=== PATIENT | female | born 1990 | race Caucasian/White ===

== ENCOUNTER 2018-03-29 17:25 | Outpatient (CLI) | payer OTHER | END 2018-03-29 19:25 | disposition home or self-care (01) | LOC: EDBD 17:25 → SLB 17:25 | PROVIDERS: ATTEND Obstetrics & Gynecology | DX: N94.89 Other specified conditions associated with female genital organs and menstrual cycle (principal) | CPT/HCPCS: 36415; 84702-TC ==

== ENCOUNTER 2018-05-14 12:17 | Outpatient (CLI) | payer OTHER ==
[2018-05-15 08:06] LABS: PROLACTIN 10.5 ng/mL (4.8-23.3)
== END 2018-05-14 19:39 | disposition home or self-care (01) ==
LOC: SLB 12:17
PROVIDERS: ATTEND Obstetrics & Gynecology
DX: E10.65 Type 1 diabetes mellitus with hyperglycemia (principal); E34.9 Endocrine disorder, unspecified
CPT/HCPCS: 36415; 82947-TC; 83036; 84146

== ENCOUNTER → 2018-06-04 | Outpatient (CLI) | payer OTHER | END | disposition home or self-care (01) | LOC: SLB 15:20 | PROVIDERS: ATTEND Obstetrics & Gynecology | DX: N92.3 Ovulation bleeding (principal) | CPT/HCPCS: 36415; 84144 ==

== ENCOUNTER 2018-07-02 06:37 | Day surgery (SDC) | payer OTHER ==
[~2018-07-02] VITALS: Ht 160 cm; Wt 87.5 kg
[2018-07-02 06:56] LABS: HCG,QUAL RESULT NEGATIVE (NEGATIVE)
[2018-07-02] MEDS ORDERED: GLYCOPYRROLATE 0.2 MG/ML VIAL IJ ONE (07:35)
[2018-07-02] MEDS ORDERED: EPINEPHrine 1 MG/ML AMP IM ONE (07:35)
[2018-07-02] MEDS ORDERED: OXYMETAZOLINE HCL 0.05% NASAL SPRAY NS ONE (07:35)
[2018-07-02] MEDS ORDERED: DEXAMETHASONE SOD PHOSPHATE 4 MG/ML VIAL IVP ONE (07:35)
[2018-07-02] MEDS ORDERED: MUPIROCIN NASAL 2% OINT. NS ONE (07:35)
[2018-07-02] MEDS ORDERED: ROCURONIUM BROMIDE 10 MG/ML (ZEMURON) IV ONE (07:35)
[2018-07-02] MEDS ORDERED: WATER FOR IRRIGATION,STERILE 1,000 ML IRRIG.SOLN IR ONE (07:35)
[2018-07-02] MEDS ORDERED: SEVOFLURANE 15 MIN GAS INH ONE (07:35)
[2018-07-02] MEDS ORDERED: LR 1,000 ML IV.SOLN IV ONE (07:35)
[2018-07-02] MEDS ORDERED: NS 1000 ML IV.SOLN IV ONE (07:35)
[2018-07-02] MEDS ORDERED: fentaNYL CITRATE 250 MCG/5 ML AMP IV ONE (07:35)
[2018-07-02] MEDS ORDERED: PHENYLEPHRINE HCL 10 MG/ML VIAL (NEOSYNEPHRINE) IV ONE (07:35)
[2018-07-02] MEDS ORDERED: PROPOFOL 200MG/ 20ML VIAL (DIPRIVAN) IV ONE (07:35)
[2018-07-02] MEDS ORDERED: LIDOCAINE/EPI 1% 1:100000 20 ML VIAL INJ ONE (07:35)
[2018-07-02] MEDS ORDERED: ONDANSETRON HCL 4 MG/2 ML VIAL IVP ONE (07:35)
[2018-07-02] MEDS ORDERED: MIDAZOLAM HCL 5 MG/5 ML VIAL IVP ONE (07:35)
[2018-07-02] MEDS ORDERED: LR 1,000 ML IV SCH (09:26)
[2018-07-02] MEDS ORDERED: METOCLOPRAMIDE HCL 10 MG/2 ML VIAL IVP PRN (09:30)
[2018-07-02] MEDS ORDERED: MORPHINE 4 MG/ML INJ. SYRINGE IVP PRN ×3 (09:30)
[2018-07-02] MEDS ORDERED: MORPHINE 4 MG/ML INJ. SYRINGE ONE (10:22)
[2018-07-02] MEDS ORDERED: HYDROmorphone 2 MG/ML VIAL IVP ONE (10:30)
[2018-07-02] MEDS ORDERED: HYDROmorphone 2 MG/ML VIAL ONE (10:40)
[2018-07-02] MEDS ORDERED: HYDROcodone/ACETAMIN 5-325 MG TAB (NORCO/ VICODIN) PO ONE (13:15)
[2018-07-02 13:16] VITALS: BP_SYST 121
[2018-07-02] MEDS ORDERED: HYDROcodone/ACETAMIN 5-325 MG TAB (NORCO/ VICODIN) ONE (13:25)
== END 2018-07-02 15:45 | disposition home or self-care (01) ==
LOC: SDS 06:37 → SMU 06:42 → SDS 15:45
PROVIDERS: ATTEND Otolaryngology
DX: J34.2 Deviated nasal septum (principal); J32.9 Chronic sinusitis, unspecified; J34.89 Other specified disorders of nose and nasal sinuses; E03.9 Hypothyroidism, unspecified; M06.9 Rheumatoid arthritis, unspecified; M79.7 Fibromyalgia; Z83.3 Family history of diabetes mellitus; Z79.899 Other long term (current) drug therapy; Z98.890 Other specified postprocedural states; Z68.31 Body mass index [BMI] 31.0-31.9, adult; E66.01 Morbid (severe) obesity due to excess calories; R00.0 Tachycardia, unspecified
CPT/HCPCS: 30140; 30520; 31255; 31256; 84703; 88304; 88305; 88311; J0171; J1100; J1170; J2250; J2270; J2370; J2405; J2704; J3010; J3490; J7030; J7120

== ENCOUNTER 2018-11-09 06:15 | Day surgery (SDC) | payer OTHER ==
[2018-11-03 09:37] LABS: BASOPHILS % (AUTO) 0.6 % (0.0-2.0); EOSINOPHILS % (AUTO) 0.5 % (0.0-4.0); HEMATOCRIT 35.3 % (36-48); LYMPHOCYTES # (AUTO) 4.2 K/uL (1.0-5.5); LYMPHOCYTES % (AUTO) 50.4 % (20.5-51.5); MEAN CORPUSCULAR HEMOGLOBIN 21 pg (27-31); MEAN CORPUSCULAR HGB CONC 31 % (32-36); MONOCYTES # (AUTO) 0.5 K/uL (0.0-1.0); MONOCYTES % (AUTO) 5.6 % (1.7-9.3); NEUTROPHILS # (AUTO) 3.5 K/uL (1.8-7.7); NEUTROPHILS % (AUTO) 42.9 % (40.0-70.0); PLATELET COUNT (AUTO) 430 K/uL (130-430); RED BLOOD CELL COUNT(AUTO) 5.34 MIL/uL (4.2-6.2); RED CELL DISTRIBUTION WIDTH 18.3 % (9.0-15.0); WHITE BLOOD COUNT (AUTO) 8.2 K/uL (4.8-10.8)
[2018-11-03 09:40] LABS: MEAN CORPUSCULAR VOLUME 66 fL (79.0-98.0)
[2018-11-03 09:47] LABS: BILIRUBIN,URINE NEGATIVE (NEGATIVE); BLOOD, URINE NEGATIVE (NEGATIVE); CLARITY/URINE CLEAR (CLEAR); COLOR,URINE YELLOW (YELLOW); GLUCOSE,URINE NEGATIVE (NEGATIVE); KETONES,URINE NEGATIVE (NEGATIVE); LEUKOCYTE ESTERASE ,URINE TRACE (NEGATIVE); NITRITE, URINE NEGATIVE (NEGATIVE); PH,URINE 5.5 (5.0-8.0); PROTEIN URINE NEGATIVE (NEGATIVE); UROBILINOGEN,URINE 0.2 (0.2-1.0)
[2018-11-03 10:15] LABS: BACTERIA,URINE MODERATE /HPF (None Seen); RBC,URINE 0-3 /HPF (0-3); WBC,URINE 0-3 /HPF (0-3)
[2018-11-03 10:16] LABS: HCG,QUAL RESULT NEGATIVE (NEGATIVE)
[~2018-11-09] VITALS: Ht 165.1 cm; Wt 90.7 kg
[2018-11-09] MEDS ORDERED: CEFAZOLIN SOD 1 GM in D5W 50 ML IV ONE (07:00)
[2018-11-09] MEDS ORDERED: fentaNYL CITRATE 250 MCG/5 ML AMP IV ONE (07:55)
[2018-11-09] MEDS ORDERED: LR 1,000 ML IV.SOLN IV ONE (07:55)
[2018-11-09] MEDS ORDERED: MIDAZOLAM HCL 5 MG/5 ML VIAL IVP ONE (07:55)
[2018-11-09] MEDS ORDERED: SEVOFLURANE 15 MIN GAS INH ONE (07:55)
[2018-11-09] MEDS ORDERED: ROCURONIUM BROMIDE 10 MG/ML (ZEMURON) IV ONE (07:55)
[2018-11-09] MEDS ORDERED: GLYCOPYRROLATE 0.2 MG/ML VIAL IJ ONE (07:55)
[2018-11-09] MEDS ORDERED: ONDANSETRON HCL 4 MG/2 ML VIAL IVP ONE (07:55)
[2018-11-09] MEDS ORDERED: PROPOFOL 200MG/ 20ML VIAL (DIPRIVAN) IV ONE (07:55)
[2018-11-09] MEDS ORDERED: KETOROLAC TROMETHAMINE 30 MG VIAL IVP ONE (07:55)
[2018-11-09] MEDS ORDERED: NEOSTIGMINE METHYLSULFATE 1 MG/ML, 10 ML VIAL IVP ONE (07:55)
[2018-11-09] MEDS ORDERED: NS 1000 ML IV.SOLN IV ONE (07:55)
[2018-11-09] MEDS ORDERED: NS IRRIG SOLN 1000 ML IR ONE (07:55)
[2018-11-09] MEDS ORDERED: LR 1,000 ML IV SCH (08:33)
[2018-11-09] MEDS ORDERED: METOCLOPRAMIDE HCL 10 MG/2 ML VIAL IVP PRN (08:45)
[2018-11-09] MEDS ORDERED: MORPHINE 4 MG/ML INJ. SYRINGE IVP PRN ×3 (08:45)
[2018-11-09] MEDS ORDERED: MORPHINE 4 MG/ML INJ. SYRINGE ONE (10:03)
[2018-11-09 10:32] VITALS: BP_SYST 107
[2018-11-09] MEDS ORDERED: HYDROcodone/ACETAMIN 5-325 MG TAB (NORCO/ VICODIN) ONE (10:37)
[2018-11-09] MEDS ORDERED: HYDROcodone/ACETAMIN 5-325 MG TAB (NORCO/ VICODIN) PO PRN ×2 (10:45)
[2018-11-09] MEDS ORDERED: IBUPROFEN 600 MG TABLET PO PRN (10:45)
[2018-11-09] MEDS ORDERED: ONDANSETRON HCL 4 MG/2 ML VIAL IVP PRN (10:45)
[2018-11-09] MEDS ORDERED: MORPHINE SULFATE 10 MG/ML VIAL IVP PRN (10:45)
== END 2018-11-09 12:40 | disposition home or self-care (01) ==
LOC: SDS 06:15 → SMU 06:16 → SDS 12:40
PROVIDERS: ATTEND Obstetrics & Gynecology
DX: N85.00 Endometrial hyperplasia, unspecified (principal); N73.6 Female pelvic peritoneal adhesions (postinfective); N93.9 Abnormal uterine and vaginal bleeding, unspecified; M79.7 Fibromyalgia; D64.9 Anemia, unspecified; M19.90 Unspecified osteoarthritis, unspecified site; E66.3 Overweight; G89.29 Other chronic pain
CPT/HCPCS: 36415 ×2; 58558; 58660; 81000; 84703 ×2; 85025; 86886; 86900; 86901; 88305; C1727; C1782; J0690; J1885; J2250; J2270; J2405; J2704; J2710; J3010; J3490; J7030; J7060; J7120

== ENCOUNTER 2019-01-26 11:41 | Emergency (ER) | payer OTHER ==
[~2019-01-26] VITALS: Ht 162.6 cm; Wt 90.7 kg
[2019-01-26 11:45] VITALS: BP_SYST 135
--- NOTE | 2019-01-26 11:45 | NUR ---
Patient triaged and placed in waiting room. VSS and patient appears in no acute distress at this time. Accompanied by SELF, awaiting available bed, and MD notified of need for MSE.
--- NOTE | 2019-01-26 12:14 | NUR ---
BROUGHT BACK TO BED #5 VIA WHEELCHAIR AND REPORT GIVEN TO GIANCARLO
--- NOTE | 2019-01-26 12:18 | NUR ---
Pt AAOx4 ambulated into ED c/o 02/10 R heel pain r/t arthritis flare up since this morning, vaginal spotting x 2 weeks, and 02/10 low back pain. Denies trauma. No other injuries/complaints per pt/noted. Will continue to monitor.
--- NOTE | 2019-01-26 12:25 | NUR ---
DUARTE Evans at bedside examining patient.
[2019-01-26] MEDS ORDERED: PREDNISONE 20 MG TABLET PO ONE (12:45)
[2019-01-26] MEDS ORDERED: KETOROLAC TROMETHAMINE 30 MG VIAL IM ONE (12:45)
[2019-01-26 13:01] LABS: EOSINOPHILS # (AUTO) 0.1 K/uL (0.0-0.4); LYMPHOCYTES # (AUTO) 4.3 K/uL (1.0-5.5); MONOCYTES # (AUTO) 0.4 K/uL (0.0-1.0)
[2019-01-26 13:09] LABS: BASOPHILS % (AUTO) 0.5 % (0.0-2.0); EOSINOPHILS % (AUTO) 1.5 % (0.0-4.0); HEMATOCRIT 37.4 % (36-48); HEMOGLOBIN 11.8 g/dL (12.0-16.0); MEAN CORPUSCULAR HEMOGLOBIN 22 pg (27-31); MEAN CORPUSCULAR HGB CONC 32 % (32-36); MEAN CORPUSCULAR VOLUME 71 fL (79.0-98.0); NEUTROPHILS # (AUTO) 2.6 K/uL (1.8-7.7); PLATELET COUNT (AUTO) 316 K/uL (130-430); RED CELL DISTRIBUTION WIDTH 19.9 % (9.0-15.0); WHITE BLOOD COUNT (AUTO) 7.5 K/uL (4.8-10.8)
--- NOTE | 2019-01-26 13:13 | NUR ---
Radiology at bedside for XR
[2019-01-26 13:19] LABS: CALCIUM 9.1 mg/dL (8.4-11.0); CREATININE 0.8 mg/dL (0.55-1.30)
[2019-01-26 13:31] LABS: ALBUMIN 4.2 g/dL (3.4-4.8); TOTAL BILIRUBIN 0.3 mg/dL (0.0-1.0)
--- NOTE | 2019-01-26 14:07 | NUR ---
Dr. Evans at bedside discussing results.
--- NOTE | 2019-01-26 14:07 | NUR ---
PT moved to bed 06
[2019-01-26 14:11] VITALS: BP_SYST 129
--- NOTE | 2019-01-26 14:11 | NUR ---
Patient given written and verbal discharge instructions and verbalizes understanding. ER MD Evans discussed with patient the results and treatment provided. Patient in stable condition. ID arm band removed. Rx of Naproxen given. Patient educated on pain management and to follow up with PMD. Pain Scale 0. Opportunity for questions provided and answered. Medication side effect fact sheet provided.
== END 2019-01-26 14:11 | disposition home or self-care (01) ==
LOC: SED 11:41
DX: M77.31 Calcaneal spur, right foot (principal); N93.9 Abnormal uterine and vaginal bleeding, unspecified
CPT/HCPCS: 36415; 73630; 80053; 84702; 85025; 96372; 99284; J1885; J7512

== ENCOUNTER 2019-04-19 11:06 | Emergency (ER) | payer OTHER ==
[~2019-04-19] VITALS: Ht 167.6 cm; Wt 88.0 kg
[2019-04-19 11:13] VITALS: BP_SYST 147
--- NOTE | 2019-04-19 11:24 | NUR ---
Patient to ER bed 3 to gown for evaluation. Side rails up.
--- NOTE | 2019-04-19 11:25 | NUR ---
Patient is awake, alert, and oriented x4. Patient reports she has had lower abdominal pain radiating down her right leg and lower back pain for 3-4 days. Patient is also complaining of nausea, but she denies vomiting and diarrhea. Patient states she is currently trying to have a child and is worried d/t history of ectopic .
--- NOTE | 2019-04-19 11:40 | NUR ---
ER Dr. Leach at bedside examining patient.
[2019-04-19] MEDS ORDERED: KETOROLAC TROMETHAMINE 60 MG/2 ML VIAL IM ONE (12:15)
[2019-04-19 12:22] LABS: HEMATOCRIT 38.2 % (36-48); HEMOGLOBIN 12.3 g/dL (12.0-16.0); MEAN CORPUSCULAR HEMOGLOBIN 24 pg (27-31); MEAN CORPUSCULAR HGB CONC 32 % (32-36); MEAN CORPUSCULAR VOLUME 75 fL (79.0-98.0); PLATELET COUNT (AUTO) 378 K/uL (130-430); RED BLOOD CELL COUNT(AUTO) 5.13 MIL/uL (4.2-6.2); RED CELL DISTRIBUTION WIDTH 17.3 % (9.0-15.0); WHITE BLOOD COUNT (AUTO) 5.8 K/uL (4.8-10.8)
[2019-04-19 12:27] LABS: CALCIUM 8.8 mg/dL (8.4-11.0); CREATININE 0.67 mg/dL (0.55-1.30); POTASSIUM 3.7 mmol/L (3.5-5.1)
[2019-04-19 12:33] LABS: ALBUMIN 4.2 g/dL (3.4-4.8); TOTAL BILIRUBIN 0.2 mg/dL (0.0-1.0)
[2019-04-19 12:47] LABS: ATYPICAL LYMPHOCYTES % 13 % (0-0); BAND % (MANUAL) 0 % (0-6); LYMPHOCYTES % (MANUAL) 59 % (20-46)
[2019-04-19 12:48] LABS: BASOPHILS % (MANUAL) 0 % (0-2); EOSINOPHILS % (MANUAL) 2 % (0-7); MONOCYTES % (MANUAL) 3 % (0-11)
--- NOTE | 2019-04-19 13:10 | NUR ---
Patient refused toradol. Dr. Leach made aware.
[2019-04-19 13:48] LABS: BILIRUBIN,URINE NEGATIVE (NEGATIVE); BLOOD, URINE NEGATIVE (NEGATIVE); CLARITY/URINE CLEAR (CLEAR); COLOR,URINE YELLOW (YELLOW); GLUCOSE,URINE NEGATIVE (NEGATIVE); KETONES,URINE NEGATIVE (NEGATIVE); LEUKOCYTE ESTERASE ,URINE NEGATIVE (NEGATIVE); NITRITE, URINE NEGATIVE (NEGATIVE); PH,URINE 7.5 (5.0-8.0); PROTEIN URINE NEGATIVE (NEGATIVE); UROBILINOGEN,URINE 0.2 (0.2-1.0)
--- NOTE | 2019-04-19 14:08 | NUR ---
Patient is now asking for pain medication. Dr. Leach made aware.
[2019-04-19] MEDS ORDERED: traMADol HCL HCL 50 MG TABLET (ULTRAM) PO ONE (14:15)
[2019-04-19 14:40] VITALS: BP_SYST 147
--- NOTE | 2019-04-19 14:41 | NUR ---
Patient given written and verbal discharge instructions and verbalizes understanding. ER MD discussed with patient the results and treatment provided. Patient in stable condition. ID arm band removed. Rx of miralax, tramadol given. Patient educated on pain management and to follow up with PMD. Pain Scale 0/10. Opportunity for questions provided and answered. Medication side effect fact sheet provided.
== END 2019-04-19 14:40 | disposition home or self-care (01) ==
LOC: SED 11:06
DX: K59.00 Constipation, unspecified (principal)
CPT/HCPCS: 36415; 74176; 80053; 81003; 81025; 83690; 84702; 85007; 85027; 99284; J1885

== ENCOUNTER 2019-07-04 11:42 | Outpatient (CLI) | payer OTHER | END 2019-07-04 21:02 | disposition home or self-care (01) | LOC: SLB 11:42 | PROVIDERS: ATTEND Obstetrics & Gynecology | DX: N92.3 Ovulation bleeding (principal); N94.89 Other specified conditions associated with female genital organs and menstrual cycle | CPT/HCPCS: 36415; 84144; 84702-TC ==

== ENCOUNTER 2019-11-10 10:55 | Outpatient (CLI) | payer OTHER ==
[2019-11-10 11:53] LABS: HEMATOCRIT 42.1 % (36-48); HEMOGLOBIN 13.5 g/dL (12.0-16.0); MEAN CORPUSCULAR HEMOGLOBIN 25 pg (27-31); MEAN CORPUSCULAR HGB CONC 32 % (32-36); MEAN CORPUSCULAR VOLUME 78 fL (79.0-98.0); PLATELET COUNT (AUTO) 287 K/uL (130-430); RED CELL DISTRIBUTION WIDTH 14.8 % (9.0-15.0); WHITE BLOOD COUNT (AUTO) 4.6 K/uL (4.8-10.8)
[2019-11-10 12:12] LABS: ATYPICAL LYMPHOCYTES % 5 % (0-0); BAND % (MANUAL) 1 % (0-6); BASOPHILS % (MANUAL) 0 % (0-2); EOSINOPHILS % (MANUAL) 1 % (0-7); LYMPHOCYTES % (MANUAL) 65 % (20-46); MONOCYTES % (MANUAL) 4 % (0-11)
[2019-11-10 12:30] LABS: ALBUMIN 4.2 g/dL (3.4-4.8); C-REACTIVE PROTEIN QUANT 0.3 mg/dL (0-0.5); CALCIUM 9.1 mg/dL (8.4-11.0); CREATININE 0.82 mg/dL (0.55-1.30); FREE T4 (FREE THYROXINE) 1.6 ng/dL (0.6-1.6); POTASSIUM 3.8 mmol/L (3.5-5.1); THYROID STIMULATING HORMONE 1.16 uIu/mL (0.34-4.82); TOTAL BILIRUBIN 0.2 mg/dL (0.0-1.0)
[2019-11-10 12:52] LABS: ERYTHROCYTE SEDIMENTATION RATE 6 MM/HR (0-20)
[2019-11-11 15:42] LABS: HEMOGLOBIN A1C 5.7 % (4.8-5.6)
== END 2019-11-10 21:07 | disposition home or self-care (01) ==
LOC: SLB 10:55
DX: M06.9 Rheumatoid arthritis, unspecified (principal); E06.9 Thyroiditis, unspecified; E03.9 Hypothyroidism, unspecified; D70.9 Neutropenia, unspecified; Z79.899 Other long term (current) drug therapy
CPT/HCPCS: 36415; 80053; 80061; 82306; 83036; 84439; 84443-TC; 85007; 85027; 85651-TC; 86140

== ENCOUNTER 2020-11-07 12:01 | Outpatient (CLI) | payer OTHER ==
[2020-11-07 12:51] LABS: BILIRUBIN,URINE NEGATIVE (NEGATIVE); CLARITY/URINE CLEAR (CLEAR); COLOR,URINE YELLOW (YELLOW); GLUCOSE,URINE NEGATIVE (NEGATIVE); KETONES,URINE TRACE (NEGATIVE); LEUKOCYTE ESTERASE ,URINE NEGATIVE (NEGATIVE); NITRITE, URINE NEGATIVE (NEGATIVE); PH,URINE 5.5 (5.0-8.0); PROTEIN URINE NEGATIVE (NEGATIVE); UROBILINOGEN,URINE 0.2 (0.2-1.0)
[2020-11-07 12:54] LABS: BLOOD, URINE TRACE (NEGATIVE)
[2020-11-07 13:01] LABS: BACTERIA,URINE RARE /HPF (None Seen); RBC,URINE 0-3 /HPF (0-3); WBC,URINE NONE SEEN /HPF (0-3)
[2020-11-07 13:10] LABS: HEMATOCRIT 37.9 % (36-48); HEMOGLOBIN 12.4 g/dL (12.0-16.0); MEAN CORPUSCULAR HEMOGLOBIN 25 pg (27-31); MEAN CORPUSCULAR HGB CONC 33 % (32-36); MEAN CORPUSCULAR VOLUME 76 fL (79.0-98.0); PLATELET COUNT (AUTO) 350 K/uL (130-430); RED BLOOD CELL COUNT(AUTO) 5.02 MIL/uL (4.2-6.2); WHITE BLOOD COUNT (AUTO) 5.5 K/uL (4.8-10.8)
[2020-11-07 13:16] LABS: ALBUMIN 3.9 g/dL (3.4-4.8); CALCIUM 9.2 mg/dL (8.4-11.0); CREATININE 0.77 mg/dL (0.55-1.30); POTASSIUM 3.9 mmol/L (3.5-5.1); THYROID STIMULATING HORMONE 0.5 uIu/mL (0.36-3.74); TOTAL BILIRUBIN 0.5 mg/dL (0.0-1.0)
[2020-11-07 13:47] LABS: ERYTHROCYTE SEDIMENTATION RATE 62 MM/HR (0-20)
[2020-11-07 14:15] LABS: ATYPICAL LYMPHOCYTES % 10 % (0-0); BASOPHILS % (MANUAL) 0 % (0-2); EOSINOPHILS % (MANUAL) 0 % (0-7); LYMPHOCYTES % (MANUAL) 54 % (20-46); MONOCYTES % (MANUAL) 7 % (0-11)
[2020-11-08 06:06] LABS: T3 UPTAKE 29 % (24-39)
[2020-11-08 08:06] LABS: RA LATEX TURBID 13.7 IU/mL (0.0-13.9)
[2020-11-08 10:07] LABS: ANTI NUCLEAR AB WITH REFLEX Positive (Negative)
[2020-11-08 11:51] LABS: HEMOGLOBIN A1C 5.7 % (4.8-5.6)
== END 2020-11-07 21:34 | disposition home or self-care (01) ==
LOC: SUS 12:01
PROVIDERS: ATTEND Family Medicine
DX: Z00.00 Encounter for general adult medical examination without abnormal findings (principal); Z13.1 Encounter for screening for diabetes mellitus; M06.9 Rheumatoid arthritis, unspecified; E04.9 Nontoxic goiter, unspecified; E03.9 Hypothyroidism, unspecified; D64.9 Anemia, unspecified; Z13.21 Encounter for screening for nutritional disorder
CPT/HCPCS: 36415; 76536-TC; 80053; 80061; 81000; 83036; 84443; 84479; 84703; 85007; 85027; 85651-TC; 86038; 86431

== ENCOUNTER 2021-08-22 11:38 | Outpatient (CLI) | payer OTHER ==
[2021-08-23 04:06] LABS: ESTRADIOL 61.1 pg/mL (.); FOLLICLE STIMULATION HORMONE 5.8 mIU/mL (.); LUETENIZING HORMONE 2.4 mIU/mL (.)
== END 2021-08-22 19:34 | disposition home or self-care (01) ==
LOC: SLB 11:38
PROVIDERS: ATTEND Specialist
DX: N92.6 Irregular menstruation, unspecified (principal)
CPT/HCPCS: 36415; 82670; 83001; 83002

== ENCOUNTER 2021-08-27 13:20 | Outpatient (CLI) | payer OTHER ==
[2021-08-28 08:06] LABS: ESTRADIOL 70.9 pg/mL (.); LUETENIZING HORMONE 4.4 mIU/mL (.); PROLACTIN 10.2 ng/mL (4.8-23.3)
[2021-08-28 12:04] LABS: HEMOGLOBIN A1C 5.8 % (4.8-5.6); INSULIN 72.4 uIU/mL (2.6-24.9)
== END 2021-08-27 20:10 | disposition home or self-care (01) ==
LOC: SLB 13:20
PROVIDERS: ATTEND Specialist
DX: N92.6 Irregular menstruation, unspecified (principal)
CPT/HCPCS: 36415; 82627; 82670; 83001; 83002; 83036; 83525; 84146; 84443

== ENCOUNTER 2021-08-28 08:27 | Outpatient (CLI) | payer OTHER ==
[2021-08-28 09:06] LABS: BASOPHILS # (AUTO) 0.1 K/uL (0.0-0.2); BASOPHILS % (AUTO) 1.4 % (0.0-2.0); EOSINOPHILS # (AUTO) 0.1 K/uL (0.0-0.4); HEMATOCRIT 39.1 % (36-48); HEMOGLOBIN 12.7 g/dL (12.0-16.0); LYMPHOCYTES % (AUTO) 53.3 % (20.5-51.5); MEAN CORPUSCULAR HEMOGLOBIN 24 pg (27-31); MEAN CORPUSCULAR HGB CONC 33 % (32-36); MEAN CORPUSCULAR VOLUME 74 fL (79.0-98.0); MONOCYTES # (AUTO) 0.4 K/uL (0.0-1.0); MONOCYTES % (AUTO) 6.5 % (1.7-9.3); NEUTROPHILS % (AUTO) 36.8 % (40.0-70.0); PLATELET COUNT (AUTO) 398 K/uL (130-430); RED CELL DISTRIBUTION WIDTH 15.4 % (9.0-15.0); WHITE BLOOD COUNT (AUTO) 5.5 K/uL (4.8-10.8)
[2021-08-28 09:42] LABS: ERYTHROCYTE SEDIMENTATION RATE 59 MM/HR (0-20)
[2021-08-28 11:04] LABS: THYROID STIMULATING HORMONE 0.08 uIu/mL (0.36-3.74); TOTAL BILIRUBIN 0.1 mg/dL (0.0-1.0)
[2021-08-28 11:26] LABS: CALCIUM 8.9 mg/dL (8.4-11.0); CREATININE 0.74 mg/dL (0.55-1.30)
[2021-08-28 14:13] LABS: C-REACTIVE PROTEIN QUANT 1.4 mg/dL (0-0.5)
== END 2021-08-28 19:55 | disposition home or self-care (01) ==
LOC: SLB 08:27
DX: E11.9 Type 2 diabetes mellitus without complications (principal); E06.9 Thyroiditis, unspecified; E53.9 Vitamin B deficiency, unspecified; M06.9 Rheumatoid arthritis, unspecified; M32.9 Systemic lupus erythematosus, unspecified; E83.42 Hypomagnesemia; E78.9 Disorder of lipoprotein metabolism, unspecified; Z79.899 Other long term (current) drug therapy
CPT/HCPCS: 36415; 80053; 80061; 82306; 82607; 83036; 84443; 85025; 85651-TC; 86038; 86140; 86200; 86431

== ENCOUNTER 2022-01-01 11:46 | Outpatient (CLI) | payer OTHER | END 2022-01-01 20:39 | disposition home or self-care (01) | LOC: SLB 11:46 | PROVIDERS: ATTEND Specialist | DX: O09.811 Supervision of pregnancy resulting from assisted reproductive technology, first trimester (principal); Z3A.00 Weeks of gestation of pregnancy not specified | CPT/HCPCS: 36415; 84144 ==

== ENCOUNTER 2022-01-14 13:42 | Outpatient (CLI) | payer OTHER ==
[2022-01-14 14:43] LABS: BASOPHILS % (AUTO) 0.6 % (0.0-2.0); EOSINOPHILS # (AUTO) 0.2 K/uL (0.0-0.4); EOSINOPHILS % (AUTO) 2.2 % (0.0-4.0); HEMATOCRIT 36.9 % (36-48); LYMPHOCYTES # (AUTO) 3.3 K/uL (1.0-5.5); LYMPHOCYTES % (AUTO) 42.2 % (20.5-51.5); MEAN CORPUSCULAR VOLUME 75 fL (79.0-98.0); MONOCYTES # (AUTO) 0.6 K/uL (0.0-1.0); MONOCYTES % (AUTO) 7.3 % (1.7-9.3); NEUTROPHILS # (AUTO) 3.7 K/uL (1.8-7.7); NEUTROPHILS % (AUTO) 47.7 % (40.0-70.0); PLATELET COUNT (AUTO) 324 K/uL (130-430); RED BLOOD CELL COUNT(AUTO) 4.92 MIL/uL (4.2-6.2); RED CELL DISTRIBUTION WIDTH 15.4 % (9.0-15.0); WHITE BLOOD COUNT (AUTO) 7.8 K/uL (4.8-10.8)
[2022-01-15 08:06] LABS: PROGESTERONE 49.5 ng/mL (.)
[2022-01-15 13:06] LABS: HEPATITIS B SURFACE AG Negative (Negative)
[2022-01-15 17:06] LABS: T4 (THYROXINE) 16.7 ug/dl
== END 2022-01-14 19:58 | disposition home or self-care (01) ==
LOC: SLB 13:42
PROVIDERS: ATTEND Specialist
DX: O99.281 Endocrine, nutritional and metabolic diseases complicating pregnancy, first trimester (principal); E03.4 Atrophy of thyroid (acquired); Z3A.09 9 weeks gestation of pregnancy; E16.1 Other hypoglycemia
CPT/HCPCS: 36415; 84144; 84436; 84443; 85025; 86592; 86886; 86900; 86901; 87340

== ENCOUNTER 2022-02-19 15:38 | Emergency (ER) | payer OTHER ==
[~2022-02-19] VITALS: Ht 165.1 cm; Wt 81.6 kg
[2022-02-19 15:38] VITALS: BP_SYST 135
--- NOTE | 2022-02-19 15:40 | NUR ---
Patient triaged and placed in waiting room. VSS and patient appears in no acute distress at this time. Accompanied by SELF, awaiting available bed, and MD notified of need for MSE.
--- NOTE | 2022-02-19 15:51 | NUR ---
PT STATES THAT SHE IS 14 WEEKS 3 DAYS , STATES LOWER PELVIC AND LOWER BACK PAIN ALL DAY TODAY. STATES DURING HER LAST SHE HAD TO HAVE A CERCLAGE DUE TO INCOMPETENT CERVIX. SHE IS SCHEDULED FOR A CERCLAGE ON THE . JUST WORRIED THAT SHE MIGHT BE DILATING LIKE LAST TIME
--- NOTE | 2022-02-19 15:55 | NUR ---
DR DARNELL OUT TO TRIAGE ROOM TO EVALUATE PT.
--- NOTE | 2022-02-19 16:01 | NUR ---
DR DARNELL EVALUATING PT IN TRIAGE ROOM.
[2022-02-19 17:12] LABS: BASOPHILS # (AUTO) 0.1 K/uL (0.0-0.2); BASOPHILS % (AUTO) 0.8 % (0.0-2.0); EOSINOPHILS % (AUTO) 0.6 % (0.0-4.0); HEMATOCRIT 36.9 % (36-48); HEMOGLOBIN 12.1 g/dL (12.0-16.0); LYMPHOCYTES # (AUTO) 2.5 K/uL (1.0-5.5); LYMPHOCYTES % (AUTO) 33.6 % (20.5-51.5); MEAN CORPUSCULAR HEMOGLOBIN 25 pg (27-31); MEAN CORPUSCULAR HGB CONC 33 % (32-36); MEAN CORPUSCULAR VOLUME 77 fL (79.0-98.0); MONOCYTES # (AUTO) 0.5 K/uL (0.0-1.0); MONOCYTES % (AUTO) 6.6 % (1.7-9.3); NEUTROPHILS # (AUTO) 4.3 K/uL (1.8-7.7); NEUTROPHILS % (AUTO) 58.4 % (40.0-70.0); PLATELET COUNT (AUTO) 304 K/uL (130-430); RED BLOOD CELL COUNT(AUTO) 4.82 MIL/uL (4.2-6.2); RED CELL DISTRIBUTION WIDTH 13.9 % (9.0-15.0); WHITE BLOOD COUNT (AUTO) 7.3 K/uL (4.8-10.8)
[2022-02-19 17:17] LABS: CALCIUM 8.9 mg/dL (8.4-11.0); CREATININE 0.68 mg/dL (0.55-1.30); POTASSIUM 3.5 mmol/L (3.5-5.1)
--- NOTE | 2022-02-19 17:39 | NUR ---
BROUGHT BACK TO BED #8 AND REPORT GIVEN TO JAMES
[2022-02-19 17:47] LABS: ALBUMIN 3.2 g/dL (3.4-4.8); TOTAL BILIRUBIN 0.1 mg/dL (0.0-1.0)
--- NOTE | 2022-02-19 17:49 | NUR ---
Ritchie of care received/ Pt A&Ox4,14 weeks with c/o lower back pain, VSS, respirations even and unlabored, pt denies N/V, report given to Jonas MORROW
[2022-02-19 18:11] LABS: BILIRUBIN,URINE NEGATIVE (NEGATIVE); BLOOD, URINE NEGATIVE (NEGATIVE); CLARITY/URINE CLEAR (CLEAR); COLOR,URINE YELLOW (YELLOW); GLUCOSE,URINE NEGATIVE (NEGATIVE); KETONES,URINE 1+ (NEGATIVE); LEUKOCYTE ESTERASE ,URINE NEGATIVE (NEGATIVE); NITRITE, URINE NEGATIVE (NEGATIVE); PROTEIN URINE NEGATIVE (NEGATIVE); UROBILINOGEN,URINE 0.2 (0.2-1.0)
[2022-02-19 19:05] VITALS: BP_SYST 101
--- NOTE | 2022-02-19 19:06 | NUR ---
Patient given written and verbal discharge instructions and verbalizes understanding. ER MD DARNELL discussed with patient the results and treatment provided. Patient in stable condition. ID arm band removed. Patient educated on pain management and to follow up with PMD. Pain Scale 0/10. Opportunity for questions provided and answered. Medication side effect fact sheet provided.
== END 2022-02-19 19:06 | disposition home or self-care (01) ==
LOC: SED 15:38
DX: O26.892 Other specified pregnancy related conditions, second trimester (principal); Z3A.14 14 weeks gestation of pregnancy; Z79.899 Other long term (current) drug therapy
CPT/HCPCS: 36415; 76801; 80053; 81003; 81025; 84702; 85025; 99284

== ENCOUNTER 2022-02-25 06:25 | Day surgery (SDC) | payer OTHER ==
[2022-02-20 14:45] LABS: FREE T4 (FREE THYROXINE) 1.2 ng/dL (0.6-1.6); THYROID STIMULATING HORMONE 6.77 uIu/mL (0.34-4.82)
[2022-02-24 10:52] LABS: HCG,QUAL RESULT POSITIVE (NEGATIVE)
[2022-02-24 11:03] LABS: BASOPHILS % (AUTO) 0.4 % (0.0-2.0); EOSINOPHILS % (AUTO) 0.7 % (0.0-4.0); HEMATOCRIT 34.9 % (36-48); HEMOGLOBIN 11.7 g/dL (12.0-16.0); LYMPHOCYTES # (AUTO) 2.3 K/uL (1.0-5.5); LYMPHOCYTES % (AUTO) 33.3 % (20.5-51.5); MEAN CORPUSCULAR HEMOGLOBIN 25 pg (27-31); MEAN CORPUSCULAR HGB CONC 34 % (32-36); MEAN CORPUSCULAR VOLUME 76 fL (79.0-98.0); MONOCYTES # (AUTO) 0.4 K/uL (0.0-1.0); MONOCYTES % (AUTO) 5.4 % (1.7-9.3); NEUTROPHILS # (AUTO) 4.2 K/uL (1.8-7.7); NEUTROPHILS % (AUTO) 60.2 % (40.0-70.0); PLATELET COUNT (AUTO) 293 K/uL (130-430); RED BLOOD CELL COUNT(AUTO) 4.62 MIL/uL (4.2-6.2); RED CELL DISTRIBUTION WIDTH 13.6 % (9.0-15.0); WHITE BLOOD COUNT (AUTO) 6.9 K/uL (4.8-10.8)
[~2022-02-25] VITALS: Ht 165.1 cm; Wt 81.6 kg
[2022-02-25 07:21] LABS: BILIRUBIN,URINE NEGATIVE (NEGATIVE); BLOOD, URINE NEGATIVE (NEGATIVE); CLARITY/URINE CLEAR (CLEAR); COLOR,URINE YELLOW (YELLOW); GLUCOSE,URINE NEGATIVE (NEGATIVE); KETONES,URINE NEGATIVE (NEGATIVE); LEUKOCYTE ESTERASE ,URINE NEGATIVE (NEGATIVE); NITRITE, URINE NEGATIVE (NEGATIVE); PH,URINE 5.5 (5.0-8.0); PROTEIN URINE NEGATIVE (NEGATIVE); UROBILINOGEN,URINE 0.2 (0.2-1.0)
[2022-02-25] MEDS ORDERED: CEFAZOLIN 2 GM IVPB PREMIX 50 ML IV ONE (07:56)
[2022-02-25] MEDS ORDERED: fentaNYL CITRATE/PF 100 MCG/2 ML AMP IVP ONE (07:56)
[2022-02-25] MEDS ORDERED: ePHEDrine sulfate 50 MG/ML VIAL IVP ONE (07:56)
[2022-02-25] MEDS ORDERED: LR 1,000 ML IV.SOLN IV ONE (07:56)
[2022-02-25] MEDS ORDERED: MIDAZOLAM HCL 5 MG/5 ML VIAL IVP ONE (07:56)
[2022-02-25] MEDS ORDERED: ONDANSETRON HCL 4 MG/2 ML VIAL IVP ONE (07:56)
[2022-02-25] MEDS ORDERED: NS IRRIG SOLN 1000 ML IR ONE (07:56)
[2022-02-25] MEDS ORDERED: TERBUTALINE SULFATE 1 MG/ML VIAL SUBCUT PRN (08:45)
[2022-02-25] MEDS ORDERED: HYDROmorphone 1 MG/ML INJ. CARTRIDGE IVP PRN (08:45)
[2022-02-25] MEDS ORDERED: METOCLOPRAMIDE HCL 10 MG/2 ML VIAL IVP PRN (08:45)
[2022-02-25] MEDS ORDERED: MORPHINE SULFATE 10 MG/ML VIAL IM PRN (08:45)
[2022-02-25] MEDS ORDERED: ONDANSETRON HCL 4 MG/2 ML VIAL IVP PRN (08:45)
[2022-02-25] MEDS ORDERED: MEPERIDINE HCL/PF 25 MG/ML DISP.SYRIN IVP PRN (08:45)
[2022-02-25 08:47] VITALS: BP_SYST 110
[2022-02-25] MEDS ORDERED: MORPHINE 4 MG INJ. 4 MG/ML VIAL IVP ONE (12:30)
[2022-02-25] MEDS ORDERED: MORPHINE SULFATE 10 MG/ML VIAL ONE (13:18)
== END 2022-02-25 19:36 | disposition home or self-care (01) ==
LOC: SDS 06:25 → SMU 06:26 → SPU 12:56 → SDS 19:36
PROVIDERS: ATTEND Specialist
DX: O34.32 Maternal care for cervical incompetence, second trimester (principal); O99.282 Endocrine, nutritional and metabolic diseases complicating pregnancy, second trimester; E03.9 Hypothyroidism, unspecified; Z3A.16 16 weeks gestation of pregnancy; Z20.822 Contact with and (suspected) exposure to COVID-19
CPT/HCPCS: 84439; 84443; 36415 ×2; 84480; 84703; 85025; 86886; 86900; 86901; 59320; 82962; 87070 ×2; 81003; U0003; J0690; J2250; J2405; J3010; J2270; J7120; J3105; 87075-TC

== ENCOUNTER 2022-04-12 20:50 | Observation (INO) | payer OTHER ==
[~2022-04-12] VITALS: Ht 165.1 cm; Wt 84.8 kg
[2022-04-12 23:09] LABS: BILIRUBIN,URINE NEGATIVE (NEGATIVE); BLOOD, URINE NEGATIVE (NEGATIVE); CLARITY/URINE CLEAR (CLEAR); COLOR,URINE YELLOW (YELLOW); GLUCOSE,URINE NEGATIVE (NEGATIVE); KETONES,URINE NEGATIVE (NEGATIVE); LEUKOCYTE ESTERASE ,URINE NEGATIVE (NEGATIVE); NITRITE, URINE NEGATIVE (NEGATIVE); PROTEIN URINE NEGATIVE (NEGATIVE); UROBILINOGEN,URINE 0.2 (0.2-1.0)
== END 2022-04-12 21:29 | disposition home or self-care (01) ==
LOC: SPU 20:50
PROVIDERS: ADMIT Specialist; ATTEND Specialist
DX: O26.892 Other specified pregnancy related conditions, second trimester (principal); R10.30 Lower abdominal pain, unspecified; Z3A.22 22 weeks gestation of pregnancy
CPT/HCPCS: 87086; 81003; 81002; G0379; G0378

== ENCOUNTER 2022-04-23 07:46 | Outpatient (CLI) | payer OTHER ==
[2022-04-23 08:40] LABS: BASOPHILS % (AUTO) 0.4 % (0.0-2.0); EOSINOPHILS % (AUTO) 0.6 % (0.0-4.0); HEMATOCRIT 35.6 % (36-48); HEMOGLOBIN 11.7 g/dL (12.0-16.0); LYMPHOCYTES # (AUTO) 2.6 K/uL (1.0-5.5); LYMPHOCYTES % (AUTO) 30.3 % (20.5-51.5); MEAN CORPUSCULAR HEMOGLOBIN 25 pg (27-31); MEAN CORPUSCULAR HGB CONC 33 % (32-36); MEAN CORPUSCULAR VOLUME 77 fL (79.0-98.0); MONOCYTES # (AUTO) 0.6 K/uL (0.0-1.0); MONOCYTES % (AUTO) 6.6 % (1.7-9.3); NEUTROPHILS # (AUTO) 5.3 K/uL (1.8-7.7); NEUTROPHILS % (AUTO) 62.1 % (40.0-70.0); PLATELET COUNT (AUTO) 272 K/uL (130-430); RED BLOOD CELL COUNT(AUTO) 4.63 MIL/uL (4.2-6.2); WHITE BLOOD COUNT (AUTO) 8.6 K/uL (4.8-10.8)
[2022-04-23 09:01] LABS: BILIRUBIN,URINE NEGATIVE (NEGATIVE); BLOOD, URINE NEGATIVE (NEGATIVE); CLARITY/URINE CLEAR (CLEAR); COLOR,URINE YELLOW (YELLOW); GLUCOSE,URINE NEGATIVE (NEGATIVE); KETONES,URINE NEGATIVE (NEGATIVE); LEUKOCYTE ESTERASE ,URINE NEGATIVE (NEGATIVE); NITRITE, URINE NEGATIVE (NEGATIVE); PROTEIN URINE NEGATIVE (NEGATIVE); UROBILINOGEN,URINE 0.2 (0.2-1.0)
[2022-04-23 09:03] LABS: ALBUMIN 3.1 g/dL (3.4-4.8); C-REACTIVE PROTEIN QUANT 2.5 mg/dL (0-0.5); CALCIUM 8.7 mg/dL (8.4-11.0); CREATININE 0.59 mg/dL (0.55-1.30); TOTAL BILIRUBIN 0.2 mg/dL (0.0-1.0)
[2022-04-23 09:54] LABS: ERYTHROCYTE SEDIMENTATION RATE 58 MM/HR (0-20)
[2022-04-24 07:06] LABS: COMPLEMENT C4, SERUM 43 mg/dL (12-38)
[2022-04-24 09:06] LABS: ANTI-DNA(DS) AB, QN 1 IU/mL (0-9); ANTI-NUCLEAR AB DIRECT Positive (Negative); SMITH ABS <0.2 AI (0.0-0.9)
[2022-04-25 08:14] LABS: RA LATEX TURBID 19.2 IU/mL (<14.0)
[2022-04-25 08:15] LABS: THYROID PEROXIDASE (TPO) AB 154 IU/mL (0-34)
[2022-04-25 16:06] LABS: PTT-LA 29.7 sec (0.0-51.9); dRVVT 35.7 sec (0.0-47.0)
[2022-04-27 08:06] LABS: ANTI-MITOCHONDRIAL AB <20.0 Units (0.0-20.0); ANTI-SMOOTH MUSCLE AB 5 Units (0-19)
[2022-04-29 08:06] LABS: ANTI-PARIETAL CELL AB 18.1 Units (0.0-20.0)
[2022-04-29 19:06] LABS: CCP IgG AB <1 units (0-19)
[2022-04-30 07:50] LABS: ANTI NUCLEAR AB WITH REFLEX POSITIVE (NEGATIVE)
== END 2022-04-23 18:26 | disposition home or self-care (01) ==
LOC: SLB 07:46
DX: M06.9 Rheumatoid arthritis, unspecified (principal); R80.9 Proteinuria, unspecified; M32.9 Systemic lupus erythematosus, unspecified; Z79.899 Other long term (current) drug therapy
CPT/HCPCS: 36415; 80053; 80061; 81003; 85025; 85613; 85651-TC; 85670; 85705; 85732; 86038; 86140; 86146; 86147; 86200; 86431

== ENCOUNTER 2022-05-29 07:53 | Outpatient (CLI) | payer OTHER ==
[2022-05-29 08:21] LABS: BASOPHILS % (AUTO) 0.3 % (0.0-2.0); EOSINOPHILS % (AUTO) 0.5 % (0.0-4.0); HEMATOCRIT 34.5 % (36-48); HEMOGLOBIN 11.3 g/dL (12.0-16.0); LYMPHOCYTES # (AUTO) 2.5 K/uL (1.0-5.5); LYMPHOCYTES % (AUTO) 32.2 % (20.5-51.5); MEAN CORPUSCULAR HEMOGLOBIN 25 pg (27-31); MEAN CORPUSCULAR HGB CONC 33 % (32-36); MEAN CORPUSCULAR VOLUME 76 fL (79.0-98.0); MONOCYTES # (AUTO) 0.5 K/uL (0.0-1.0); MONOCYTES % (AUTO) 5.9 % (1.7-9.3); NEUTROPHILS # (AUTO) 4.7 K/uL (1.8-7.7); NEUTROPHILS % (AUTO) 61.1 % (40.0-70.0); PLATELET COUNT (AUTO) 286 K/uL (130-430); RED BLOOD CELL COUNT(AUTO) 4.56 MIL/uL (4.2-6.2); RED CELL DISTRIBUTION WIDTH 14.2 % (9.0-15.0); WHITE BLOOD COUNT (AUTO) 7.8 K/uL (4.8-10.8)
[2022-05-29 08:46] LABS: ALBUMIN 2.8 g/dL (3.4-4.8); CREATININE 0.45 mg/dL (0.55-1.30); TOTAL BILIRUBIN 0.2 mg/dL (0.0-1.0)
[2022-05-30 09:06] LABS: HEMOGLOBIN A1C 5.6 % (4.8-5.6)
== END 2022-05-29 21:21 | disposition home or self-care (01) ==
LOC: SLB 07:53
PROVIDERS: ATTEND Specialist
DX: Z33.1 Pregnant state, incidental (principal)
CPT/HCPCS: 36415; 80053; 83036; 85025; 86592

== ENCOUNTER 2022-06-02 07:41 | Outpatient (CLI) | payer OTHER ==
[2022-06-02 08:38] LABS: CALCIUM 9.2 mg/dL (8.4-11.0); CREATININE 0.44 mg/dL (0.55-1.30); THYROID STIMULATING HORMONE 10.48 uIu/mL (0.34-4.82)
== END 2022-06-02 18:39 | disposition home or self-care (01) ==
LOC: SLB 07:41
DX: E11.9 Type 2 diabetes mellitus without complications (principal); E03.9 Hypothyroidism, unspecified
CPT/HCPCS: 36415; 80048; 83036; 84443

== ENCOUNTER 2022-06-30 09:29 | Outpatient (CLI) | payer OTHER | END 2022-06-30 19:52 | disposition home or self-care (01) | LOC: SLB 09:29 | PROVIDERS: ATTEND Internal Medicine Endocrinology, Diabetes & Metabolism | DX: E03.9 Hypothyroidism, unspecified (principal) | CPT/HCPCS: 36415; 84443 ==

== ENCOUNTER 2022-07-10 10:45 | Observation (INO) | payer OTHER ==
[~2022-07-10] VITALS: Ht 165.1 cm; Wt 89.8 kg
== END 2022-07-10 11:55 | disposition home or self-care (01) ==
LOC: SPU 10:45
PROVIDERS: ADMIT Specialist; ATTEND Specialist
DX: Z34.83 Encounter for supervision of other normal pregnancy, third trimester (principal); Z3A.34 34 weeks gestation of pregnancy
CPT/HCPCS: 59025; 81002; G0378; G0379

== ENCOUNTER 2022-07-15 09:08 | Observation (INO) | payer OTHER | END 2022-07-15 13:12 | disposition home or self-care (01) | LOC: SPU 09:08 | PROVIDERS: ADMIT Specialist; ATTEND Specialist | DX: Z34.83 Encounter for supervision of other normal pregnancy, third trimester (principal); Z3A.37 37 weeks gestation of pregnancy | CPT/HCPCS: 81002; G0378 ==

== ENCOUNTER 2022-08-04 10:19 | Inpatient (IN) | payer OTHER ==
[~2022-08-04] VITALS: Ht 162.6 cm; Wt 90.7 kg
[2022-08-04] MEDS ORDERED: LR 1,000 ML IV ONE (10:30)
[2022-08-04] MEDS ORDERED: CEFAZOLIN 2 GM IVPB PREMIX 50 ML IV ONE (10:30)
[2022-08-04 11:01] LABS: BASOPHILS % (AUTO) 0.4 % (0.0-2.0); EOSINOPHILS % (AUTO) 0.4 % (0.0-4.0); HEMATOCRIT 32.4 % (36-48); HEMOGLOBIN 10.5 g/dL (12.0-16.0); LYMPHOCYTES # (AUTO) 2.5 K/uL (1.0-5.5); LYMPHOCYTES % (AUTO) 37.7 % (20.5-51.5); MEAN CORPUSCULAR HEMOGLOBIN 23 pg (27-31); MEAN CORPUSCULAR HGB CONC 33 % (32-36); MEAN CORPUSCULAR VOLUME 71 fL (79.0-98.0); MONOCYTES # (AUTO) 0.5 K/uL (0.0-1.0); MONOCYTES % (AUTO) 7.4 % (1.7-9.3); NEUTROPHILS # (AUTO) 3.6 K/uL (1.8-7.7); NEUTROPHILS % (AUTO) 54.1 % (40.0-70.0); PLATELET COUNT (AUTO) 256 K/uL (130-430); RED BLOOD CELL COUNT(AUTO) 4.55 MIL/uL (4.2-6.2); RED CELL DISTRIBUTION WIDTH 15.1 % (9.0-15.0); WHITE BLOOD COUNT (AUTO) 6.7 K/uL (4.8-10.8)
[2022-08-04 11:12] LABS: BILIRUBIN,URINE NEGATIVE (NEGATIVE); BLOOD, URINE NEGATIVE (NEGATIVE); COLOR,URINE YELLOW (YELLOW); GLUCOSE,URINE NEGATIVE (NEGATIVE); KETONES,URINE NEGATIVE (NEGATIVE); LEUKOCYTE ESTERASE ,URINE 1+ (NEGATIVE); NITRITE, URINE NEGATIVE (NEGATIVE); PROTEIN URINE 1+ (NEGATIVE); UROBILINOGEN,URINE 0.2 (0.2-1.0)
[2022-08-04 11:15] LABS: CLARITY/URINE SLIGHTLY HAZY (CLEAR)
[2022-08-04 11:23] VITALS: BP_SYST 128
[2022-08-04 11:32] LABS: RBC,URINE 0-3 /HPF (0-3)
[2022-08-04 11:33] LABS: BACTERIA,URINE MODERATE /HPF (None Seen)
[2022-08-04 11:45] LABS: MUCUS,URINE 1+ /LPF (None Seen)
[2022-08-04] MEDS ORDERED: LR 1,000 ML IV.SOLN IV ONE (14:45)
[2022-08-04] MEDS ORDERED: BUPIVACAINE /PF 0.75% 10 ML VIAL INJ ONE (14:45)
[2022-08-04] MEDS ORDERED: MORPHINE SULFATE 10 MG/ML VIAL ONE (14:45)
[2022-08-04] MEDS ORDERED: NS IRRIG SOLN 1000 ML IR ONE (14:45)
[2022-08-04] MEDS ORDERED: PHENYLEPHRINE HCL 10 MG/ML VIAL (NEOSYNEPHRINE) ONE (14:45)
[2022-08-04] MEDS ORDERED: ePHEDrine sulfate 50 MG/ML VIAL ONE (14:45)
[2022-08-04] MEDS ORDERED: WATER FOR IRRIGATION,STERILE 1,000 ML IRRIG.SOLN IR ONE (14:45)
[2022-08-04] MEDS ORDERED: fentaNYL CITRATE/PF 100 MCG/2 ML AMP ONE (14:45)
[2022-08-04] MEDS ORDERED: OXYTOCIN 10 UNIT/ML VIAL ONE (14:45)
[2022-08-04] MEDS ORDERED: LANOLIN 7 GM OINT. TP PRN (15:45)
[2022-08-04] MEDS ORDERED: DIPHTH,PERTUSS(ACELL),TET VAC 0.5 ML VIAL (Tdap) I.M. PRN (15:45)
[2022-08-04] MEDS ORDERED: OXYCODONE/ACETAMINOPHEN *10*mg/325 mg TABLET PO PRN (15:45)
[2022-08-04] MEDS ORDERED: RHO(D) IMMUNE GLOBULIN/MALTOSE 1500 UNITS/1.3 ML (WINHRO) IM PRN (15:45)
[2022-08-04] MEDS ORDERED: ANUSOL 1 EA SUPP.RECT (PREPARATION H) RC PRN (15:45)
[2022-08-04] MEDS ORDERED: LR 1,000 ML IV SCH (15:45)
[2022-08-04] MEDS ORDERED: MEASLES,MUMPS&RUBELLA VACC/PF 12500 UNIT/0.5 ML VIAL SUBQ PRN (15:45)
[2022-08-04] MEDS ORDERED: BISACODYL 10 MG/SUPPOSITORY RC PRN (15:45)
[2022-08-04] MEDS ORDERED: HYDROcodone/ACETAMIN 5-325 MG TAB (NORCO/ VICODIN) PO PRN (15:45)
[2022-08-04] MEDS ORDERED: TEMAZEPAM 15 MG CAPSULE PO PRN (15:45)
[2022-08-04] MEDS ORDERED: NALOXONE HCL 0.4 MG/ML AMP (NARCAN) IVP PRN ×2 (15:45→16:00)
[2022-08-04 15:49] VITALS: BP_SYST 121
[2022-08-04] MEDS ORDERED: DIPHENHYDRAMINE INJ 50 MG/ML VIAL IM PRN (16:00)
[2022-08-04] MEDS ORDERED: ONDANSETRON HCL 4 MG/2 ML VIAL IVP PRN (16:00)
[2022-08-04] MEDS ORDERED: KETOROLAC TROMETHAMINE 60 MG/2 ML VIAL IM PRN (16:00)
[2022-08-04] MEDS: DOCUSATE SODIUM 100 MG CAPSULE PO SCH (20:20)
[2022-08-04] MEDS: SENNOSIDES/DOCUSATE SODIUM 1 TAB TABLET(SENOKOT-S) PO SCH (20:20)
[2022-08-04] MEDS: OXYTOCIN/0.9 % SODIUM CHLORIDE 1,000 ML IV SCH (21:45)
[2022-08-04] MEDS: SIMETHICONE 80 MG TAB.CHEW PO SCH (23:50)
[2022-08-04] MEDS: CEFAZOLIN 1 GM IVPB PREMIX 50 ML IV SCH (23:51)
[2022-08-04] MEDS: KETOROLAC TROMETHAMINE 30 MG VIAL IVP SCH (23:51)
[2022-08-05] MEDS: SIMETHICONE 80 MG TAB.CHEW PO SCH ×5 (03:00→21:01)
[2022-08-05] MEDS: CEFAZOLIN 1 GM IVPB PREMIX 50 ML IV SCH ×2 (06:22→12:29)
[2022-08-05] MEDS: OXYTOCIN/0.9 % SODIUM CHLORIDE 1,000 ML IV SCH (06:22)
[2022-08-05] MEDS: KETOROLAC TROMETHAMINE 30 MG VIAL IVP SCH ×3 (06:32→18:17)
[2022-08-05 07:41] LABS: BASOPHILS % (AUTO) 0.3 % (0.0-2.0); EOSINOPHILS % (AUTO) 0.5 % (0.0-4.0); HEMATOCRIT 27.8 % (36-48); HEMOGLOBIN 9.1 g/dL (12.0-16.0); LYMPHOCYTES # (AUTO) 2.3 K/uL (1.0-5.5); LYMPHOCYTES % (AUTO) 33.5 % (20.5-51.5); MEAN CORPUSCULAR HEMOGLOBIN 23 pg (27-31); MEAN CORPUSCULAR HGB CONC 33 % (32-36); MEAN CORPUSCULAR VOLUME 72 fL (79.0-98.0); MONOCYTES # (AUTO) 0.4 K/uL (0.0-1.0); MONOCYTES % (AUTO) 6.3 % (1.7-9.3); NEUTROPHILS % (AUTO) 59.4 % (40.0-70.0); PLATELET COUNT (AUTO) 167 K/uL (130-430); RED BLOOD CELL COUNT(AUTO) 3.89 MIL/uL (4.2-6.2); RED CELL DISTRIBUTION WIDTH 15.1 % (9.0-15.0); WHITE BLOOD COUNT (AUTO) 6.8 K/uL (4.8-10.8)
[2022-08-05] MEDS: DOCUSATE SODIUM 100 MG CAPSULE PO SCH ×2 (09:51→21:01)
[2022-08-05] MEDS: SENNOSIDES/DOCUSATE SODIUM 1 TAB TABLET(SENOKOT-S) PO SCH (21:01)
[2022-08-06] MEDS: IBUPROFEN 600 MG TABLET PO SCH ×4 (00:03→18:00)
[2022-08-06] MEDS: SIMETHICONE 80 MG TAB.CHEW PO SCH ×5 (00:03→22:24)
[2022-08-06] MEDS ORDERED: NALOXONE HCL 0.4 MG/ML AMP (NARCAN) IVP PRN (07:30)
[2022-08-06] MEDS ORDERED: HYDROcodone/ACETAMIN 10-325 MG TAB PO PRN (07:30)
[2022-08-06] MEDS: DOCUSATE SODIUM 100 MG CAPSULE PO SCH ×2 (09:42→20:45)
[2022-08-06] MEDS: HYDROmorphone 2 MG/ML VIAL IVP PRN ×2 (12:43→22:24)
[2022-08-06] MEDS: SENNOSIDES/DOCUSATE SODIUM 1 TAB TABLET(SENOKOT-S) PO SCH (20:45)
[2022-08-07] MEDS: IBUPROFEN 600 MG TABLET PO SCH ×4 (00:35→17:54)
[2022-08-07] MEDS: SIMETHICONE 80 MG TAB.CHEW PO SCH ×2 (02:09→06:22)
[2022-08-07] MEDS: DOCUSATE SODIUM 100 MG CAPSULE PO SCH (09:49)
[2022-08-07] MEDS: OXYCODONE/ACETAMINOPHEN 5-325 TABLET PO PRN ×2 (09:49→15:56)
== END 2022-08-07 19:15 | disposition home or self-care (01) | DRG 788 ==
LOC: SPU 10:19
PROVIDERS: ADMIT Specialist; ATTEND Specialist
PROC: 10D00Z1 Extraction of Products of Conception, Low, Open Approach (ICD-10-PCS; principal; 2022-08-04 14:48)
DX: O34.211 Maternal care for low transverse scar from previous cesarean delivery (principal); O24.429 Gestational diabetes mellitus in childbirth, unspecified control; Z3A.38 38 weeks gestation of pregnancy; Z37.0 Single live birth; Z20.822 Contact with and (suspected) exposure to COVID-19
CPT/HCPCS: 36415; 81000; 82947; 85025; 86592; 86762; 86886; 86900; 86901; 94760; J0690; J1170; J1200; J1885; J2270; J2370; J2590; J3010; J3490; J7120

== ENCOUNTER 2022-09-11 09:04 | Outpatient (CLI) | payer OTHER ==
[2022-09-11 10:17] LABS: ALBUMIN 3.7 g/dL (3.4-4.8); CALCIUM 9.1 mg/dL (8.4-11.0); CREATININE 0.73 mg/dL (0.55-1.30); FREE T4 (FREE THYROXINE) 1.3 ng/dL (0.6-1.6); THYROID STIMULATING HORMONE 0.8 uIu/mL (0.34-4.82); TOTAL BILIRUBIN 0.4 mg/dL (0.0-1.0)
== END 2022-09-11 20:52 | disposition home or self-care (01) ==
LOC: SLB 09:04
PROVIDERS: ATTEND Internal Medicine Endocrinology, Diabetes & Metabolism
DX: E11.9 Type 2 diabetes mellitus without complications (principal); E03.9 Hypothyroidism, unspecified
CPT/HCPCS: 36415; 80053; 82306; 83037; 84439; 84443

== ENCOUNTER 2023-02-25 14:40 | Outpatient (CLI) | payer OTHER | END 2023-02-25 17:13 | disposition home or self-care (01) | LOC: SLB 14:40 | PROVIDERS: ATTEND Specialist | DX: N91.2 Amenorrhea, unspecified (principal) | CPT/HCPCS: 36415; 84702 ==

== ENCOUNTER 2023-06-09 15:27 | Emergency (ER) | payer OTHER ==
[~2023-06-09] VITALS: Ht 165.1 cm; Wt 90.7 kg
[2023-06-09 15:41] VITALS: BP_SYST 140; PULSE 101; RESP 18; TEMP 98; O2SAT 97
[2023-06-09 17:16] LABS: COVID19 ANTIGEN SOFIA FIA NEGATIVE (NEGATIVE)
[2023-06-09 17:31] LABS: INFLUENZA TYPE A Negative (NEGATIVE); INFLUENZA TYPE B NEGATIVE (NEGATIVE)
[2023-06-09] MEDS ORDERED: ALBMDI INH (18:13)
[2023-06-09] MEDS ORDERED: PRED20TA PO (18:17)
[2023-06-09] MEDS ORDERED: BENZ100C92 PO (18:17)
[2023-06-09] MEDS ORDERED: PHEDM120 PO (18:17)
[2023-06-09] MEDS ORDERED: GUAI400T93 PO (18:17)
== END 2023-06-09 18:24 | disposition home or self-care (01) ==
LOC: SED 15:27
DX: J06.9 Acute upper respiratory infection, unspecified (principal); R05.9 Cough, unspecified; R50.9 Fever, unspecified; M79.10 Myalgia, unspecified site; Z79.899 Other long term (current) drug therapy; Z20.822 Contact with and (suspected) exposure to COVID-19
CPT/HCPCS: 36415; 71046; 99284

== ENCOUNTER 2023-07-15 12:15 | Outpatient (CLI) | payer OTHER ==
[~2023-07-15 12:15] MED LIST: ALBMDI INH; BENZ100C92 PO; GUAI400T93 PO; PHEDM120 PO; PRED20TA PO
== END 2023-07-15 19:47 | disposition home or self-care (01) ==
LOC: SLB 12:15
PROVIDERS: ATTEND Specialist
DX: N92.6 Irregular menstruation, unspecified (principal)
CPT/HCPCS: 36415; 84144; 84702

== ENCOUNTER 2023-07-29 06:30 | Outpatient (CLI) | payer OTHER ==
[2023-07-29 09:22] LABS: BASOPHILS % (AUTO) 0.8 % (0.0-2.0); EOSINOPHILS # (AUTO) 0.1 K/uL (0.0-0.4); EOSINOPHILS % (AUTO) 1.7 % (0.0-4.0); HEMATOCRIT 38.2 % (36-48); HEMOGLOBIN 12.5 g/dL (12.0-16.0); LYMPHOCYTES # (AUTO) 3.3 K/uL (1.0-5.5); LYMPHOCYTES % (AUTO) 54.5 % (20.5-51.5); MEAN CORPUSCULAR HEMOGLOBIN 24 pg (27-31); MEAN CORPUSCULAR HGB CONC 33 % (32-36); MEAN CORPUSCULAR VOLUME 72 fL (79.0-98.0); MONOCYTES # (AUTO) 0.4 K/uL (0.0-1.0); MONOCYTES % (AUTO) 5.8 % (1.7-9.3); NEUTROPHILS # (AUTO) 2.3 K/uL (1.8-7.7); NEUTROPHILS % (AUTO) 37.2 % (40.0-70.0); PLATELET COUNT (AUTO) 449 K/uL (130-430); RED BLOOD CELL COUNT(AUTO) 5.32 MIL/uL (4.2-6.2); RED CELL DISTRIBUTION WIDTH 15.5 % (9.0-15.0); WHITE BLOOD COUNT (AUTO) 6.1 K/uL (4.8-10.8)
[2023-07-29 09:23] LABS: BILIRUBIN,URINE NEGATIVE (NEGATIVE); BLOOD, URINE 3+ (NEGATIVE); CLARITY/URINE CLEAR (CLEAR); COLOR,URINE YELLOW (YELLOW); GLUCOSE,URINE NEGATIVE (NEGATIVE); KETONES,URINE NEGATIVE (NEGATIVE); LEUKOCYTE ESTERASE ,URINE NEGATIVE (NEGATIVE); NITRITE, URINE NEGATIVE (NEGATIVE); PH,URINE 5.5 (5.0-8.0); PROTEIN URINE NEGATIVE (NEGATIVE); UROBILINOGEN,URINE 0.2 (0.2-1.0)
[2023-07-29 09:49] LABS: BACTERIA,URINE FEW /HPF (None Seen); HYALINE CASTS, URINE 0-10 /LPF (None Seen); RBC,URINE 20-50 /HPF (0-3); WBC,URINE 0-3 /HPF (0-3)
[2023-07-29 09:54] LABS: CALCIUM 9.2 mg/dL (8.4-11.0); CREATININE 0.84 mg/dL (0.55-1.30); FREE T4 (FREE THYROXINE) 1.7 ng/dL (0.6-1.6); POTASSIUM 4.2 mmol/L (3.5-5.1); THYROID STIMULATING HORMONE 6.12 uIu/mL (0.34-4.82); TOTAL BILIRUBIN 0.3 mg/dL (0.0-1.0); TOTAL PROTEIN, SERUM 8.6 g/dL (6.4-8.3)
[2023-07-30 12:06] LABS: MICROALBUMIN URINE RANDOM 21.1 ug/mL (Not Estab.)
== END 2023-07-29 18:03 | disposition home or self-care (01) ==
LOC: SLB 06:30
PROVIDERS: ATTEND Internal Medicine Endocrinology, Diabetes & Metabolism
DX: E11.9 Type 2 diabetes mellitus without complications (principal); E03.9 Hypothyroidism, unspecified; E78.2 Mixed hyperlipidemia; E55.9 Vitamin D deficiency, unspecified; N39.0 Urinary tract infection, site not specified; I10 Essential (primary) hypertension
CPT/HCPCS: 36415; 80053; 80061; 81000; 81001; 81015; 82043; 82570; 83037; 84439; 84443; 85025

== ENCOUNTER 2023-08-06 07:57 | Outpatient (CLI) | payer OTHER ==
[2023-08-06 08:58] LABS: BASOPHILS % (AUTO) 0.4 % (0.0-2.0); EOSINOPHILS % (AUTO) 0.9 % (0.0-4.0); HEMATOCRIT 35.8 % (36-48); HEMOGLOBIN 11.6 g/dL (12.0-16.0); LYMPHOCYTES % (AUTO) 51.8 % (20.5-51.5); MEAN CORPUSCULAR HEMOGLOBIN 24 pg (27-31); MEAN CORPUSCULAR HGB CONC 33 % (32-36); MEAN CORPUSCULAR VOLUME 73 fL (79.0-98.0); MONOCYTES # (AUTO) 0.3 K/uL (0.0-1.0); MONOCYTES % (AUTO) 5.7 % (1.7-9.3); NEUTROPHILS # (AUTO) 2.4 K/uL (1.8-7.7); NEUTROPHILS % (AUTO) 41.2 % (40.0-70.0); PLATELET COUNT (AUTO) 339 K/uL (130-430); RED BLOOD CELL COUNT(AUTO) 4.93 MIL/uL (4.2-6.2); RED CELL DISTRIBUTION WIDTH 15.5 % (9.0-15.0); WHITE BLOOD COUNT (AUTO) 5.7 K/uL (4.8-10.8)
[2023-08-06 09:11] LABS: ERYTHROCYTE SEDIMENTATION RATE 80 MM/HR (0-20)
[2023-08-06 09:45] LABS: ALBUMIN 3.7 g/dL (3.4-4.8); CALCIUM 8.8 mg/dL (8.4-11.0); CREATININE 0.71 mg/dL (0.55-1.30); FREE T4 (FREE THYROXINE) 1.6 ng/dL (0.6-1.6); THYROID STIMULATING HORMONE 1.03 uIu/mL (0.34-4.82); TOTAL BILIRUBIN 0.3 mg/dL (0.0-1.0); TOTAL PROTEIN, SERUM 8.2 g/dL (6.4-8.3)
[2023-08-07 07:07] LABS: RA LATEX TURBID 13.1 IU/mL (<14.0)
[2023-08-07 12:06] LABS: HEPATITIS C VIRUS AB Non Reactive (Non Reactive)
[2023-08-07 13:06] LABS: HEPATITIS A AB, IgM Negative (Negative); HEPATITIS B CORE AB, IgM Negative (Negative); HEPATITIS B SURFACE AG Negative (Negative)
== END 2023-08-06 18:59 | disposition home or self-care (01) ==
LOC: SLB 07:57
DX: Z11.1 Encounter for screening for respiratory tuberculosis (principal); N06.9 Isolated proteinuria with unspecified morphologic lesion; E06.9 Thyroiditis, unspecified; E55.9 Vitamin D deficiency, unspecified; N81.0 Urethrocele; K75.9 Inflammatory liver disease, unspecified; M35.00 Sjogren syndrome, unspecified; M81.0 Age-related osteoporosis without current pathological fracture; Z79.899 Other long term (current) drug therapy
CPT/HCPCS: 36415; 80053; 80074; 84439; 84443; 85025; 85651; 86431; 86480

== ENCOUNTER 2023-08-11 07:51 | Outpatient (CLI) | payer OTHER ==
[2023-08-11 08:38] LABS: BASOPHILS % (AUTO) 0.5 % (0.0-2.0); EOSINOPHILS % (AUTO) 0.8 % (0.0-4.0); HEMATOCRIT 36.2 % (36-48); HEMOGLOBIN 11.9 g/dL (12.0-16.0); LYMPHOCYTES # (AUTO) 3.2 K/uL (1.0-5.5); MEAN CORPUSCULAR HEMOGLOBIN 24 pg (27-31); MEAN CORPUSCULAR HGB CONC 33 % (32-36); MEAN CORPUSCULAR VOLUME 72 fL (79.0-98.0); MONOCYTES # (AUTO) 0.4 K/uL (0.0-1.0); MONOCYTES % (AUTO) 5.7 % (1.7-9.3); NEUTROPHILS # (AUTO) 2.6 K/uL (1.8-7.7); PLATELET COUNT (AUTO) 391 K/uL (130-430); RED CELL DISTRIBUTION WIDTH 15.8 % (9.0-15.0); WHITE BLOOD COUNT (AUTO) 6.3 K/uL (4.8-10.8)
[2023-08-11 09:16] LABS: ALBUMIN 3.7 g/dL (3.4-4.8); CALCIUM 9.3 mg/dL (8.4-11.0); CREATININE 0.73 mg/dL (0.55-1.30); POTASSIUM 4.1 mmol/L (3.5-5.1); THYROID STIMULATING HORMONE 0.95 uIu/mL (0.34-4.82); TOTAL BILIRUBIN 0.3 mg/dL (0.0-1.0); TOTAL PROTEIN, SERUM 8.2 g/dL (6.4-8.3)
== END 2023-08-11 21:34 | disposition home or self-care (01) ==
LOC: SLB 07:51
PROVIDERS: ATTEND Specialist
DX: Z01.419 Encounter for gynecological examination (general) (routine) without abnormal findings (principal)
CPT/HCPCS: 36415; 80053; 80061; 83037; 84443; 85025

== ENCOUNTER 2023-08-29 06:54 | Outpatient (CLI) | payer OTHER ==
[2023-08-29 07:33] LABS: BASOPHILS % (AUTO) 0.4 % (0.0-2.0); EOSINOPHILS % (AUTO) 0.7 % (0.0-4.0); HEMATOCRIT 35.3 % (36-48); HEMOGLOBIN 11.5 g/dL (12.0-16.0); LYMPHOCYTES # (AUTO) 3.6 K/uL (1.0-5.5); LYMPHOCYTES % (AUTO) 56.5 % (20.5-51.5); MEAN CORPUSCULAR HEMOGLOBIN 24 pg (27-31); MEAN CORPUSCULAR HGB CONC 33 % (32-36); MEAN CORPUSCULAR VOLUME 72 fL (79.0-98.0); MONOCYTES # (AUTO) 0.4 K/uL (0.0-1.0); MONOCYTES % (AUTO) 6.2 % (1.7-9.3); NEUTROPHILS # (AUTO) 2.3 K/uL (1.8-7.7); NEUTROPHILS % (AUTO) 36.2 % (40.0-70.0); PLATELET COUNT (AUTO) 366 K/uL (130-430); RED BLOOD CELL COUNT(AUTO) 4.88 MIL/uL (4.2-6.2); RED CELL DISTRIBUTION WIDTH 16.2 % (9.0-15.0); WHITE BLOOD COUNT (AUTO) 6.3 K/uL (4.8-10.8)
[2023-08-29 07:52] LABS: ALBUMIN 3.4 g/dL (3.4-4.8); CALCIUM 9.4 mg/dL (8.4-11.0); CREATININE 0.71 mg/dL (0.55-1.30); POTASSIUM 4.3 mmol/L (3.5-5.1); THYROID STIMULATING HORMONE 0.34 uIu/mL (0.34-4.82); TOTAL BILIRUBIN 0.2 mg/dL (0.0-1.0); TOTAL PROTEIN, SERUM 7.7 g/dL (6.4-8.3)
[2023-08-29 08:30] LABS: HEMOGLOBIN A1C 5.9 % (<5.7)
[2023-09-01 11:07] LABS: ACTH, PLASMA 13.1 pg/mL (7.2-63.3)
== END 2023-08-29 20:12 | disposition home or self-care (01) ==
LOC: SLB 06:54
PROVIDERS: ATTEND Internal Medicine Endocrinology, Diabetes & Metabolism
DX: E03.9 Hypothyroidism, unspecified (principal)
CPT/HCPCS: 36415; 80053; 80061; 82024; 82043; 82533; 82570; 83037; 84443; 85025

== ENCOUNTER 2024-01-19 06:20 | Outpatient (CLI) | payer OTHER ==
[2024-01-19 07:10] LABS: ALBUMIN 3.6 g/dL (3.4-4.8); CALCIUM 9.1 mg/dL (8.4-11.0); CREATININE 0.73 mg/dL (0.55-1.30); THYROID STIMULATING HORMONE 2.71 uIu/mL (0.34-4.82); TOTAL BILIRUBIN 0.1 mg/dL (0.0-1.0); TOTAL PROTEIN, SERUM 7.8 g/dL (6.4-8.3)
== END 2024-01-19 20:47 | disposition home or self-care (01) ==
LOC: SLB 06:20
PROVIDERS: ATTEND Internal Medicine Endocrinology, Diabetes & Metabolism
DX: I10 Essential (primary) hypertension (principal); E03.9 Hypothyroidism, unspecified; E11.9 Type 2 diabetes mellitus without complications
CPT/HCPCS: 36415; 80053; 80061; 83037; 84443

== ENCOUNTER 2024-01-25 13:34 | Outpatient (CLI) | payer OTHER ==
[~2024-01-25 13:34] MED LIST changes: +iohexoL 240 mgI/mL, 50 ML INFUS..BTL IV ONE
== END 2024-01-25 20:09 | disposition home or self-care (01) ==
LOC: SRD 13:34
PROVIDERS: ATTEND Specialist
DX: N92.6 Irregular menstruation, unspecified (principal)
CPT/HCPCS: 74740; 58340; Q9966

== ENCOUNTER 2024-02-12 06:18 | Outpatient (CLI) | payer OTHER ==
[~2024-02-12 06:18] MED LIST changes: -iohexoL 240 mgI/mL, 50 ML INFUS..BTL IV ONE
[2024-02-12 07:18] LABS: BASOPHILS % (AUTO) 0.5 % (0.0-2.0); EOSINOPHILS # (AUTO) 0.2 K/uL (0.0-0.4); EOSINOPHILS % (AUTO) 2.8 % (0.0-4.0); HEMATOCRIT 37.3 % (36-48); HEMOGLOBIN 12.1 g/dL (12.0-16.0); LYMPHOCYTES % (AUTO) 39.4 % (20.5-51.5); MEAN CORPUSCULAR HEMOGLOBIN 23 pg (27-31); MEAN CORPUSCULAR HGB CONC 33 % (32-36); MEAN CORPUSCULAR VOLUME 72 fL (79.0-98.0); MONOCYTES # (AUTO) 0.5 K/uL (0.0-1.0); MONOCYTES % (AUTO) 6.7 % (1.7-9.3); NEUTROPHILS # (AUTO) 3.8 K/uL (1.8-7.7); NEUTROPHILS % (AUTO) 50.6 % (40.0-70.0); PLATELET COUNT (AUTO) 394 K/uL (130-430); RED BLOOD CELL COUNT(AUTO) 5.17 MIL/uL (4.2-6.2); RED CELL DISTRIBUTION WIDTH 14.8 % (9.0-15.0); WHITE BLOOD COUNT (AUTO) 7.5 K/uL (4.8-10.8)
[2024-02-12 07:22] LABS: BILIRUBIN,URINE NEGATIVE (NEGATIVE); BLOOD, URINE NEGATIVE (NEGATIVE); CLARITY/URINE CLEAR (CLEAR); COLOR,URINE YELLOW (YELLOW); GLUCOSE,URINE NEGATIVE (NEGATIVE); KETONES,URINE NEGATIVE (NEGATIVE); LEUKOCYTE ESTERASE ,URINE NEGATIVE (NEGATIVE); NITRITE, URINE NEGATIVE (NEGATIVE); PROTEIN URINE NEGATIVE (NEGATIVE); UROBILINOGEN,URINE 0.2 (0.2-1.0)
[2024-02-12 07:35] LABS: HEMOGLOBIN A1C 5.65 % (<5.7)
[2024-02-12 07:48] LABS: ALBUMIN 3.8 g/dL (3.4-4.8); CALCIUM 9.8 mg/dL (8.4-11.0); CREATININE 0.94 mg/dL (0.55-1.30); FREE T4 (FREE THYROXINE) 1.5 ng/dl (0.8-1.5); POTASSIUM 3.9 mmol/L (3.5-5.1); THYROID STIMULATING HORMONE 1.99 uIu/mL (0.36-3.74); TOTAL BILIRUBIN 0.3 mg/dL (0.0-1.0); TOTAL PROTEIN, SERUM 8.5 g/dL (6.4-8.3); URIC ACID 6.4 mg/dL (2.4-7.0)
== END 2024-02-12 19:09 | disposition home or self-care (01) ==
LOC: SLB 06:18
PROVIDERS: ATTEND Internal Medicine
DX: E11.65 Type 2 diabetes mellitus with hyperglycemia (principal); E78.5 Hyperlipidemia, unspecified; E03.9 Hypothyroidism, unspecified; E66.9 Obesity, unspecified; E55.9 Vitamin D deficiency, unspecified; E56.9 Vitamin deficiency, unspecified
CPT/HCPCS: 36415; 80053; 80061; 81001; 81003; 83037; 84439; 84443; 84550; 85025

== ENCOUNTER 2024-02-17 10:24 | Outpatient (CLI) | payer OTHER | END 2024-02-17 18:02 | disposition home or self-care (01) | LOC: SUS 10:24 | PROVIDERS: ATTEND Internal Medicine | DX: E04.1 Nontoxic single thyroid nodule (principal) | CPT/HCPCS: 76536 ==